=== PATIENT | male | born 1970 | race Caucasian/White ===

== ENCOUNTER → 2016-03-25 | Outpatient (CLI) | payer OTHER ==
[~2016-03-25] MED LIST: GLUCOSAMINE1000 MG PO; LISINOPRIL10 MG PO; METOPROLOL SUCC25 M1 PO; ZYRTEC10 M3 PO
== END ==
LOC: RAD 16:03
DX: S20.211A Contusion of right front wall of thorax, initial encounter (principal)

== ENCOUNTER → 2017-06-10 | Outpatient (CLI) | payer OTHER ==
[2014-10-30 11:09] VITALS: BP 122/67
== END ==
LOC: RAD 10:10
DX: M54.42 Lumbago with sciatica, left side (principal)

== ENCOUNTER 2017-06-19 16:00 | Outpatient (RCR) | payer OTHER ==
[2014-10-30 11:09] VITALS: BP 122/67
== END 2017-06-19 16:30 | disposition home or self-care (01) ==
LOC: PT 16:00
DX: M54.16 Radiculopathy, lumbar region (principal)

== ENCOUNTER → 2017-07-31 | Outpatient (CLI) | payer OTHER ==
[2017-07-26 20:09] VITALS: BP 110/67
[2017-07-31 17:44] LABS: BUN/CREATININE RATIO 14.3 (6.0-26.0); CALCIUM 9.3 mg/dL (8.4-10.2); POTASSIUM 4.2 mmol/L (3.6-5.0)
== END ==
LOC: LAB 16:41
PROVIDERS: Family Medicine
DX: I10 Essential (primary) hypertension (principal); J30.9 Allergic rhinitis, unspecified; S61.019A Laceration without foreign body of unspecified thumb without damage to nail, initial encounter

== ENCOUNTER → 2017-10-30 | Outpatient (CLI) | payer OTHER ==
[2017-07-26 20:09] VITALS: BP 110/67
== END ==
LOC: RAD 08:33
DX: R10.32 Left lower quadrant pain (principal); R14.0 Abdominal distension (gaseous)

== ENCOUNTER → 2018-05-20 | Outpatient (CLI) | payer OTHER ==
[2017-07-26 20:09] VITALS: BP 110/67
== END ==
LOC: RAD 16:58
DX: M79.672 Pain in left foot (principal)

== ENCOUNTER → 2020-05-10 | Outpatient (CLI) | payer BC ==
[2017-07-26 20:09] VITALS: BP 110/67
[2020-05-10 09:36] LABS: EOS # 0.2 (0.04-0.40); HEMATOCRIT 42.6 % (42.0-52.0); HEMOGLOBIN 14.1 g/dL (13.5-18.0); LYMPH# 1.1 (1.50-4.00); MEAN CELL VOLUME 89 fl (78-100); MEAN CORPUSCULAR HEMOGLOBIN 29 pg (27-31); MEAN CORPUSCULAR HGB CONC 33 g/dL (33-37); MEAN PLATELET VOLUME 11.5 fl (7.4-10.4); MONO # 0.3 (0.20-0.80); NEU # 3.8 (1.40-6.50); PLATELET COUNT 153 K/mm3 (130-400); RED BLOOD COUNT 4.81 M/mm3 (4.20-5.60); RED CELL DISTRIBUTION WIDTH 13.4 % (11.5-14.5); WHITE BLOOD COUNT 5.4 K/mm3 (4.8-10.8)
[2020-05-10 09:43] LABS: ALBUMIN 4.1 g/dL (3.5-5.0); POTASSIUM 4.2 mmol/L (3.5-5.1)
[2020-05-10 09:44] LABS: CALCIUM 9.3 mg/dL (8.3-10.5)
[2020-05-10 09:45] LABS: TOTAL PROTEIN 7.1 g/dL (6.4-8.3)
[2020-05-10 09:47] LABS: TOTAL BILIRUBIN 0.5 mg/dL (0.2-1.2)
== END ==
LOC: LAB 09:07
PROVIDERS: Family Medicine
DX: Z00.00 Encounter for general adult medical examination without abnormal findings (principal); Z13.220 Encounter for screening for lipoid disorders; Z13.6 Encounter for screening for cardiovascular disorders

== ENCOUNTER → 2021-11-19 | Outpatient (CLI) | payer BC ==
[2021-11-19 08:00] LABS: ALBUMIN 4.1 g/dL (3.5-5.0); POTASSIUM 4.1 mmol/L (3.5-5.1)
[2021-11-19 08:02] LABS: CALCIUM 9.1 mg/dL (8.3-10.5)
[2021-11-19 08:03] LABS: TOTAL PROTEIN 7.1 g/dL (6.4-8.3)
[2021-11-19 08:05] LABS: TOTAL BILIRUBIN 0.5 mg/dL (0.2-1.2)
== END ==
LOC: LAB 07:21
PROVIDERS: Family Medicine
DX: Z00.00 Encounter for general adult medical examination without abnormal findings (principal); Z13.1 Encounter for screening for diabetes mellitus; Z13.220 Encounter for screening for lipoid disorders; Z12.5 Encounter for screening for malignant neoplasm of prostate; E78.2 Mixed hyperlipidemia; J30.9 Allergic rhinitis, unspecified; L98.9 Disorder of the skin and subcutaneous tissue, unspecified; I10 Essential (primary) hypertension; R21 Rash and other nonspecific skin eruption